=== PATIENT | female | born 1995 | race Caucasian/White ===

== ENCOUNTER 2017-10-26 09:49 | Emergency (ER) | payer MEDICAID ==
--- NOTE | 2017-10-26 10:11 | EDM.PDOC ---
ED HPI GENERAL MEDICAL PROBLEM - General Chief Complaint: Genitourinary Problem Stated Complaint: AND BLEEDING Time Seen by Provider: 10/26/17 10:07 Source of Information: Reports: Patient History Limitations: Reports: No Limitations - History of Present Illness INITIAL COMMENTS - FREE TEXT/NARRATIVE: 22-year-old female presents to the ED with diffuse lower abdominal cramping pain associated with bleeding per vagina. Patient believes she is as she has had 6 positive home tests over the last week. Last menstrual period was around the or 21 of September. Cycles are usually pretty regular. She's not been using any form of contraception. She has never been before. Currently she is experiencing intermittent lower abdominal cramping pain with associated bright red bleeding per vagina. States the cramping is similar to what she experiences in her normal menstrual cycle. Associated diffuse low back pain as well. Patient has never had any abdominal surgery. She states that she has had breast tenderness and certain foods make her nauseated but she has not thrown up yet from the . Onset: Gradual (Started spotting per vagina last night after supper initial spotting was dark brownish in color. Overnight she developed increased bone cramping pain and bright red flow particularly this morning.) Onset Date: 10/25/17 Onset Time: 20:00 Duration: Hour(s): Location: Reports: Abdomen (Diffuse lower abdominal suprapubic--abdominal cramping pain.) Quality: Reports: Sharp, Stabbing, Other Severity: Moderate (Cramping.) Improves with: Reports: None Worsens with: Reports: None Context: Reports: Other ( Similarly 6. Is within normal periods. suspected to be early . Last emesis. Was around the August. Tenderness. : Positive. She test in the last week.). Denies: Activity, Exercise, Lifting, Sick Contact, Trauma Associated Symptoms: Reports: Nausea/Vomiting. 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 Estimated to be around September 20 or . This would make her 5 weeks .) ED ROS GENERAL - Review of Systems Review Of Systems: See Below Constitutional: Denies: Fever, Chills, Malaise, Weakness, Fatigue, Decreased Appetite, Weight Loss HEENT: Reports: No Symptoms Respiratory: Reports: No Symptoms Cardiovascular: Reports: No Symptoms Endocrine: Reports: No Symptoms GI/Abdominal: Reports: No Symptoms : Reports: Other (Fairly heavy bleeding of bright red blood per vagina. States it seems to be heavier than what she eats. She was with her normal. His. Associated lower abdominal suprapubic cramping discomfort that radiates into her back. She states the cramps or pain are similar which experiences with her periods.) Musculoskeletal: Reports: No Symptoms Skin: Reports: No Symptoms Neurological: Reports: No Symptoms Psychiatric: Reports: No Symptoms Hematologic/Lymphatic: Reports: No Symptoms Immunologic: Reports: No Symptoms ED EXAM - Physical Exam Exam: See Below Exam Limited By: No Limitations General Appearance: Alert, WD/WN, Anxious (Mildly anxious.) Eye Exam: Bilateral Eye: Normal Inspection (Normal.) Respiratory/Chest: No Respiratory Distress, Lungs Clear, Normal Breath Sounds, No Accessory Muscle Use Cardiovascular: Normal Peripheral Pulses, Regular Rate, Rhythm, No Edema, No Gallop, No Murmur GI/Abdominal Exam: Normal Bowel Sounds, Soft, Non-Tender, No Organomegaly, No Abnormal Bruit, No Mass, Pelvis Stable. No: Guarding, Rigid, Rebound, Tender (Female) Exam: Vaginal Bleeding, Other (Bright red bleeding apparent per vagina. Uterus is retroverted and nearly normal in size.). No: Adnexal Mass (L) , Adnexal Mass (R), Cervical Dilatation, Cervical Discharge, Cervical Fluid, Tissue Present in Cervix/Vagina, Uterine Tenderness Heart Tones: Not Bonner Back Exam: Normal Inspection, Full Range of Motion Extremities: Normal Inspection, Normal Range of Motion, Non-Tender, No Pedal Edema, Normal Capillary Refill Neurological: Alert, Oriented, CN II-XII Intact, Normal Cognition, Normal Gait Psychiatric: Normal Affect, Normal Mood Skin Exam: Warm, Dry, Intact, Normal Color, No Rash Course - Vital Signs Last Recorded V/S: Last Vital Signs Temp 36.6 C 10/26/17 10:07 Pulse 100 10/26/17 10:07 Resp 16 10/26/17 10:07 BP 127/90 10/26/17 10:07 Pulse Ox 100 10/26/17 10:07 - Orders/Labs/Meds Orders: Active Orders 24 hr Category Date Time Status OB Transvaginal [US] Stat Exams 10/26/17 12:19 Taken PATIENT RETYPE [BBK] Stat Lab 10/26/17 10:56 Results TYPE AND SCREEN [BBK] Stat Lab 10/26/17 10:56 Results URINALYSIS W/MICROSCOPIC [UA W/MICROSCOPIC] [URIN] Stat Lab 10/26/17 10:48 Ordered Dextrose 5%-0.9% NaCl [Dextrose 5%-Normal Saline] 1,000 Med 10/26/17 10:15 Active ml IV ASDIRECTED Medication Orders Dextrose/Sodium Chloride (Dextrose 5%-Normal Saline) 1,000 mls @ 150 mls/hr IV ASDIRECTED AMEENA Last Admin: 10/26/17 10:46 Dose: 150 mls/hr Labs: Laboratory Tests 10/26/17 10/26/17 10/26/17 Range/Units 10:10 10:48 10:56 WBC 8.35 (3.98-10.04) K/mm3 RBC 5.07 (3.98-5.22) M/mm3 Hgb 15.1 (11.2-15.7) gm/L Hct 44.1 (34.1-44.9) % MCV 87.0 (79.4-94.8) fl MCH 29.8 (25.6-32.2) pg MCHC 34.2 (32.2-35.5) g/dl RDW Std Deviation 38.0 (36.4-46.3) fL Plt Count 332 (182-369) K/mm3 MPV 8.7 L (9.4-12.3) fl Neutrophils % (Manual) 69 H (40-60) % Band Neutrophils % 0 (0-10) % Lymphocytes % (Manual) 23 (20-40) % Atypical Lymphs % 0 % Monocytes % (Manual) 4 (2-10) % Eosinophils % (Manual) 4 (0.7-5.8) % Basophils % (Manual) 0 L (0.1-1.2) Platelet Estimate Adequate RBC Morph Comment Normal Sodium (136-145) mEq/L Potassium (3.5-5.1) mEq/L Chloride (98-107) mEq/L Carbon Dioxide (21-32) mEq/L Anion Gap (5-15) BUN (7-18) mg/dL Creatinine (0.55-1.02) mg/dL Est Cr Clr Drug Dosing mL/min Estimated GFR (MDRD) (>60) mL/min BUN/Creatinine Ratio (14-18) Glucose (74-106) mg/dL Calcium (8.5-10.1) mg/dL Total Bilirubin (0.2-1.0) mg/dL AST (15-37) U/L ALT (14-59) U/L Alkaline Phosphatase (46-116) U/L Total Protein (6.4-8.2) g/dl Albumin (3.4-5.0) g/dl Globulin gm/dL Albumin/Globulin Ratio (1-2) HCG, Qual (NEGATIVE) HCG, Quant 19.0 mIU/mL Urine Color Yellow (Yellow) Urine Appearance Clear (Clear) Urine pH 5.5 (5.0-8.0) Ur Specific [place] 1.025 (1.005-1.030) Urine Protein Negative (Negative) Urine Glucose (UA) Negative (Negative) Urine Ketones Negative (Negative) Urine Occult Blood 2+ H (Negative) Urine Nitrite Negative (Negative) Urine Bilirubin Negative (Negative) Urine Urobilinogen 0.2 (0.2-1.0) Ur Leukocyte Esterase Negative (Negative) Urine RBC 30-40 H (0-5) /hpf Urine WBC 0-5 (0-5) /hpf Ur Epithelial Cells 0-5 (0-5) /hpf Urine Bacteria Few (FEW) /hpf Urine Mucus Few (FEW) /hpf Blood Type Gel Antibody Screen 10/26/17 10/26/17 10/26/17 Range/Units 10:56 10:56 10:56 WBC (3.98-10.04) K/mm3 RBC (3.98-5.22) M/mm3 Hgb (11.2-15.7) gm/L Hct (34.1-44.9) % MCV (79.4-94.8) fl MCH (25.6-32.2) pg MCHC (32.2-35.5) g/dl RDW Std Deviation (36.4-46.3) fL Plt Count (182-369) K/mm3 MPV (9.4-12.3) fl Neutrophils % (Manual) (40-60) % Band Neutrophils % (0-10) % Lymphocytes % (Manual) (20-40) % Atypical Lymphs % % Monocytes % (Manual) (2-10) % Eosinophils % (Manual) (0.7-5.8) % Basophils % (Manual) (0.1-1.2) Platelet Estimate RBC Morph Comment Sodium 138 (136-145) mEq/L Potassium 3.3 L (3.5-5.1) mEq/L Chloride 104 (98-107) mEq/L Carbon Dioxide 25 (21-32) mEq/L Anion Gap 12.3 (5-15) BUN 15 (7-18) mg/dL Creatinine 0.8 (0.55-1.02) mg/dL Est Cr Clr Drug Dosing 79.90 mL/min Estimated GFR (MDRD) > 60 (>60) mL/min BUN/Creatinine Ratio 18.8 H (14-18) Glucose 85 (74-106) mg/dL Calcium 9.3 (8.5-10.1) mg/dL Total Bilirubin 0.5 (0.2-1.0) mg/dL AST 12 L (15-37) U/L ALT 13 L (14-59) U/L Alkaline Phosphatase 59 (46-116) U/L Total Protein 7.8 (6.4-8.2) g/dl Albumin 4.3 (3.4-5.0) g/dl Globulin 3.5 gm/dL Albumin/Globulin Ratio 1.2 (1-2) HCG, Qual Positive H (NEGATIVE) HCG, Quant mIU/mL Urine Color (Yellow) Urine Appearance (Clear) Urine pH (5.0-8.0) Ur Specific [place] (1.005-1.030) Urine Protein (Negative) Urine Glucose (UA) (Negative) Urine Ketones (Negative) Urine Occult Blood (Negative) Urine Nitrite (Negative) Urine Bilirubin (Negative) Urine Urobilinogen (0.2-1.0) Ur Leukocyte Esterase (Negative) Urine RBC (0-5) /hpf Urine WBC (0-5) /hpf Ur Epithelial Cells (0-5) /hpf Urine Bacteria (FEW) /hpf Urine Mucus (FEW) /hpf Blood Type A POSITIVE Gel Antibody Screen Negative Meds: Medications Generic Name Dose Route Start Last Admin Trade Name Freq PRN Reason Stop Dose Admin Dextrose/Sodium Chloride 1,000 mls @ 150 mls/hr 10/26/17 10:15 10/26/17 10:46 Dextrose 5%-Normal Saline IV 150 mls/hr ASDIRECTED AMEENA Administration Discontinued Medications Generic Name Dose Route Start Last Admin Trade Name Freq PRN Reason Stop Dose Admin Acetaminophen 325 mg 10/26/17 10:24 Tylenol PO 10/26/17 10:25 NOW ONE - Radiology Interpretation Free Text/Narrative:: 22-year-old female presents to the ED with suspect . 6 positive home test in the last week. Associated breast tenderness and some nausea without any vomiting us far. Last normal vessel. Was a estimated to be around September 20. Cycles usually pretty regular. She has been sexually active and not using any form of contraception. If she is this would be her first . No previous abdominal surgery. Benign abdominal examination. BI-RADS bleeding per vagina appreciated. Uterus is retroverted nearly normal in size. Cervix is closed. No adnexal masses appreciated. Plan will confirm with beta hCG blood qualitative and quantitative.. Will not yet order a pelvic ultrasound as it's not clear that she is actually and this is not a missed period. At present she states she doesn't need anything for nausea or vomiting. Routine labs including type and screen ordered. - Re-Assessments/Exams Free Text/Narrative Re-Assessment/Exam: 10/26/17 11:25 only labs available at this time with hematology. I still don't have a positive test to warrant transvaginal ultrasound. 10/26/17 11:59 Total white count is 8.35 with 69% neutrophils and no bands reported. Hemoglobin is 15.1 with hematocrit of 44.1. Platelet count is 300-32, 000.. Sodium is 138 with a potassium of 3.3. The remainder the liver function and renal function is normal. Glucose is 85. Calcium is 9.3. The urine shows 2+ occult blood with 30-40 RBCs per high-power field which correlates with her current vaginal bleeding. B-HCG is not yet available. 10/26/17: 12:15: HCG is positive. Beta hCG quantitative however is only 19 suggesting failure. It's unlikely to represent an early . However transvaginal ultrasound will be done to rule out any proximal conception in the fallopian tubes. I am not suspicious of this clinically. 10/26/17 12:42 blood type is a positive. Therefore she will not we need any Rhogam or WinRho. Departure - Departure Time of Disposition: 14:01 Disposition: Home, Self-Care 01 Condition: Fair Clinical Impression: Incomplete miscarriage Intravenous infiltration Qualifiers: Encounter type: initial encounter Qualified Code(s): T80.1XXA - Vascular complications following infusion, transfusion and therapeutic injection, initial encounter - Discharge Information Referrals: PCP,None [Primary Care Provider] - Forms: ED Department Discharge Additional Instructions: Evaluation in the emergency room today in regards to 6 positive tests at home this last week. Estimated last trimester. Was around September 20. Make you 5 weeks by dates. The would be very early. Spotting last night with heavier bleeding per vagina overnight and this morning. Bright red blood loss appreciated. Associated lower abdominal cramping pain. Expect she test proved to be positive but the amount of hormone in the bloodstream was very low at 19 indicating failure or less likely a very early which would only be 3 or 4 days. An ultrasound was therefore performed and it did not show any evidence of a intrauterine or tissue within the uterus. It appears that the has failed likely for underlying genetic reasons. Your blood type today is a positive. All your other blood tests were normal. Expect a heavier than normal. Over the next couple of days. Might also last another day or 2 longer than normal. A take Motrin 600 mg every 6 hours if needed for cramping abdominal pain and also for pain in her left arm where the IV fluid infiltrated. Swelling in your arm will improve over the next 24 hours as the fluid will be reabsorbed by your body. Daily follow-up in the women's clinic ideally about Saturday next week. Suggest he seeing if you can get an appointment with Yeimy Tafoya. You need a repeat hormonal checked to make sure that that has gone down to 0. Return to the ED if you develop any sudden severe lower abdominal pain. If he cannot get into see Yeimy Tafoya then follow-up with Dr. Siegel or Dr. Bruno. The clinic number is [phone] to arrange an appointment is call first thing Saturday morning to do this. We suggest not trying to get for 2 consecutive menstrual cycles after this one. Just taking vitamins once daily if you are planning future pregnancies. - My Orders Last 24 Hours: My Active Orders 10/26/17 10:15 Dextrose 5%-0.9% NaCl [Dextrose 5%-Normal Saline] 1,000 ml IV ASDIRECTED 10/26/17 10:48 URINALYSIS W/MICROSCOPIC [UA W/MICROSCOPIC] [URIN] Stat 10/26/17 10:56 PATIENT RETYPE [BBK] Stat TYPE AND SCREEN [BBK] Stat 10/26/17 12:19 OB Transvaginal [US] Stat - Assessment/Plan Last 24 Hours: My Active Orders 10/26/17 10:15 Dextrose 5%-0.9% NaCl [Dextrose 5%-Normal Saline] 1,000 ml IV ASDIRECTED 10/26/17 10:48 URINALYSIS W/MICROSCOPIC [UA W/MICROSCOPIC] [URIN] Stat 10/26/17 10:56 PATIENT RETYPE [BBK] Stat TYPE AND SCREEN [BBK] Stat 10/26/17 12:19 OB Transvaginal [US] Stat
[2017-10-26] MEDS ORDERED: Dextrose 5%-0.9% NaCl 1,000 ML IV SCH (10:15)
[2017-10-26] MEDS ORDERED: Acetaminophen 325 MG Tab PO ONE (10:24)
--- NOTE | 2017-10-27 14:26 | US ---
First trimester obstetrical ultrasound: Multiple real-time images were obtained transvaginally. Comparison: No previous study is available. Findings: No intrauterine gestational sac is seen. No myometrial abnormality is seen. Endometrial thickness measures about 1.3 cm. Small exophytic abnormality seen off the left ovary measuring 7 mm. Uncertain if this is due to slight complicated cyst with small ectopic not being excluded at this time. Minimal free fluid is seen which may be physiologic. Ovaries are otherwise unremarkable. Impression: 1. 7 mm exophytic abnormality off the left ovary. Findings may represent a small an incidental complicated cyst but difficult to exclude a very small ectopic at this time. 2. No intrauterine gestation is seen. 3. Small amount of free fluid which is likely physiologic. Note: Follow-up and if patient's clinical status is stable, recommend repeat pelvic ultrasound in 11-14 days. Diagnostic code #3 Agree with preliminary report issued by [facility], with additional finding and recommendations as noted above ([facility] preliminary report dictated on 10/26/17, 2:40 PM Central Time)
== END 2017-10-26 14:46 | disposition home or self-care (01) ==
LOC: JD.ED 09:49
DX: O03.4 Incomplete spontaneous abortion without complication (principal); T80.89XA Other complications following infusion, transfusion and therapeutic injection, initial encounter
CPT/HCPCS: 36415; 76817; 80053; 81001; 84702; 84703; 85025; 86850; 86900; 86901; 96360; 96361; 99284; J7042

== ENCOUNTER 2019-04-09 23:27 | Emergency (ER) | payer MEDICAID ==
--- NOTE | 2019-04-09 23:49 | EDM.PDOC ---
ED HPI GENERAL MEDICAL PROBLEM - General Chief Complaint: Upper Extremity Injury/Pain Stated Complaint: FELL ON STEPS INJURING LEFT SHOULDER/HEAD/R KNEE Time Seen by Provider: 04/09/19 23:43 Source of Information: Reports: Patient, Family (friend) History Limitations: Reports: No Limitations - History of Present Illness INITIAL COMMENTS - FREE TEXT/NARRATIVE: 23-year-old female attends the ED stating that she fell down a flight of stairs a proximal be 15 stairs outside and apartment building. Did on a concrete landing. Sure how she fell in terms of some resulting versus sliding down the stairs. She is complaining of pain in her left shoulder collarbone area left side of her neck upper back and head. She fell about an hour prior, to coming into the ED. She has mild contusion to her right anterior knee but is able to walk and eyes any pain to her chest wall low back hips forearms. Has some pain also in her left fifth and second finger left hand. No injuries to the right hand or wrist. Plaster muscle. Was approximately 3 and half weeks ago. She does not believe she could be . Was no loss of consciousness. Pain is worsening primarily left shoulder and left side of her neck.. Onset: Today Onset Date: 04/09/19 Onset Time: 22:45 Duration: Minutes: Location: Reports: Head, Neck (Left side of her neck.), Upper Extremity, Left ( Left hand injury to the left second and fifth fingers left shoulder over the distal clavicle and acromioclavicular joint.), Lower Extremity, Right (Abrasion to the right knee over the patella.) Quality: Reports: Ache, Other (Sharp stabbing spasm-like pain with movement of her head or neck.) Severity: Moderate Improves with: Reports: Rest Worsens with: Reports: Movement Context: Reports: Trauma ([place] she fell down a flight of 15 stairs outside her apartment building.). 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 [No Known Home Meds] 04/09/19 [History] Past Medical History - Past Health History Medical/Surgical History: Denies Medical/Surgical History HEENT History: Reports: Impaired Vision Social & Family History - Family History Family Medical History: Noncontributory - Living Situation & Occupation Living situation: Reports: Single Occupation: Unemployed Review of Systems - Review of Systems Review Of Systems: See Below Constitutional: Reports: No Symptoms Eyes: Reports: No Symptoms Ears: Reports: No Symptoms Nose: Reports: No Symptoms Mouth/Throat: Reports: No Symptoms Respiratory: Reports: No Symptoms Cardiovascular: Reports: No Symptoms GI/Abdominal: Reports: No Symptoms Genitourinary: Reports: No Symptoms Musculoskeletal: Reports: Neck Pain (Left shoulder pain since fall.), Shoulder Pain, Hand Pain (Left hand pain), Joint Pain (Right knee pain) Skin: Reports: No Symptoms Neurological: Reports: No Symptoms Psychiatric: Reports: No Symptoms ED EXAM, GENERAL - Physical Exam Exam: See Below Exam Limited By: No Limitations General Appearance: Alert, WD/WN, Mild Distress, Other (Suggest 36.8. Pulse is 99 ) Eye Exam: Bilateral Eye: Normal Inspection, PERRL Ears: Normal External Exam Nose: Normal Inspection Throat/Mouth: Normal Inspection, Normal Lips, Normal Teeth, Normal Oropharynx, Other (No dental or tongue injuries.) Head: Other (Only tender over the left superior occipital scalp. No definitive hematoma identified. No ). No: Facial Swelling, Facial Tenderness, Sinus Tenderness Neck: Normal Inspection, Limited Range of Motion, Tender Lateral (Very tender left lateral neck with muscle spasm from C2-C7.). No: Carotid Bruit, Lymphadenopathy (L), Lymphadenopathy (R), Tender Midline Respiratory/Chest: No Respiratory Distress, Lungs Clear, Normal Breath Sounds, No Accessory Muscle Use, Chest Non-Tender, Other Cardiovascular: Normal Peripheral Pulses, Regular Rate, Rhythm, No Edema, No Gallop, No Murmur (No pain on from compression of the upper ribs and the sternum.), No Rub Peripheral Pulses: 3+: Posterior Tibial (L), Posterior Tibial (R), Dorsalis Pedis (L), Dorsalis Pedis (R) GI/Abdominal: Normal Bowel Sounds, Soft, Non-Tender, No Organomegaly, No Abnormal Bruit, No Mass, Pelvis Stable Back Exam: Other (Patient is tender in thoracic 12 and 3 and 4 levels. The remainder of the thoracic spine and the lumbar spine appear uninjured. There is no abrasions or contusions to the entire back.) Extremities: Normal Inspection, Normal Range of Motion, Other ( has a minor erythematous area to to the right anterior knee she has pain in her left second and fifth fingers with no obvious deformities. There appeared to be bruised and contused. She has pain over the acromial clavicular joint on the left side and distal clavicle. She can abduct the arm however. ). No: Non- Tender, Pedal Edema Neurological: Alert, Oriented, CN II-XII Intact, Normal Cognition, Normal Gait, No Motor/Sensory Deficits Psychiatric: Tearful Skin Exam: Warm, Dry, Intact, Normal Color, No Rash Course - Vital Signs Last Recorded V/S: Last Vital Signs Temp 36.8 C 04/09/19 23:35 Pulse 99 04/09/19 23:35 Resp 16 04/09/19 23:35 BP 141/80 H 04/09/19 23:35 Pulse Ox 96 04/09/19 23:35 - Orders/Labs/Meds Orders: Active Orders 24 hr Category Date Time Status Cervical Spine wo Cont [CT] Stat Exams 04/09/19 23:44 Taken Hand Comp Min 3V Lt [CR] Stat Exams 04/09/19 23:50 Taken Head wo Cont [CT] Stat Exams 04/09/19 23:44 Taken Shoulder Comp Lt [CR] Stat Exams 04/09/19 23:46 Taken Thoracic Spine wo Cont [CT] Stat Exams 04/09/19 23:45 Taken - Radiology Interpretation Free Text/Narrative:: 23-year-old female presents the ED after reporting that she fell down a flight of 15 stairs. Some clear how she fell whether she somersaulted door slid down the stairs. Injury occurred about an hour before deciding to come to the ED due to increasing pain primarily in her left neck and shoulder. Loss of consciousness. She has a sore spot on the left occipital scalp. She has marked tenderness over throat the left cervical spine from C2-C7 with marked paraspinal muscle spasm. I never asked her to rotate her neck. She has pain across this superior aspect of the left trapezius muscle and distal clavicle. There is marked tenderness over the acromioclavicular joint on the left side. She is able to afford flex and abduct the arm with some degree of pain. She has contusion to the left second and fifth fingers of her left hand. Abrasion to the right anterior knee without evidence of fracture to the patella. Plan CT head. CT cervical spine and thoracic spine due to pain in the upper thoracic spine T1-T4 level. X-rays of the left shoulder and left hand to be done. - Re-Assessments/Exams Free Text/Narrative Re-Assessment/Exam: 04/10/19 00:29 x-ray of the left hand reveals no fractures of any of the digits or metacarpals. X-ray of the left shoulder shows normal alignment of the acromioclavicular joint without separation or fracture of the distal clavicle or the acromium process. Humerus is intact as well. Client glenoid fossa normal. CT of the head reveals no abdomen maladies in terms of intracranial bleeding or mass effect or skull fracture. CT cervical spine reveals loss of lordotic curvature. No fractures or alignment appreciated. Similarly CT of the thoracic spine shows normal alignment and no fractures. And has suffered multiple contusions but no fractures. Treatment will be conservative with Motrin 600 mg every 6 hours as needed. Ice pack to sore areas one half hour out of every 4 hours for the next 2 days. She reports she doesn't swallow pills but can drink the Motrin liquid used for children. Departure - Departure Time of Disposition: 00:30 Disposition: Home, Self-Care 01 Condition: Fair Clinical Impression: Contusion of left shoulder, initial encounter Fall down stairs Qualifiers: Encounter type: initial encounter Qualified Code(s): W10.8XXA - Fall (on) (from ) other stairs and steps, initial encounter Contusion of occipital region of scalp Qualifiers: Encounter type: initial encounter Qualified Code(s): S00.03XA - Contusion of scalp, initial encounter Sprain of cervical neck Qualifiers: Encounter type: initial encounter Qualified Code(s): S13.9XXA - Sprain of joints and ligaments of unspecified parts of neck, initial encounter Contusion of left hand including fingers Qualifiers: Encounter type: initial encounter Qualified Code(s): S60.222A - Contusion of left hand, initial encounter - Discharge Information *PRESCRIPTION DRUG MONITORING PROGRAM REVIEWED*: Not Applicable *COPY OF PRESCRIPTION DRUG MONITORING REPORT IN PATIENT ZAIN: Not Applicable Referrals: PCP,None [Primary Care Provider] - Forms: ED Department Discharge, ED Return to Work/School Form Additional Instructions: Evaluation the emergent tonight in regards to multiple injuries that occurred from falling down a flight of stairs. The history it sounds like you're probably somersaulted down the stairs. He suffered a contusion to the left occipital scalp without hematoma formation. CT of the head reveals no intracranial bleeding or mass effect or skull fracture. Definite strain to the cervical spine with marked paraspinal muscle spasm appreciated on left side of the neck on examination. CT of the cervical spine does not reveal any broken bones indicating that the muscles and surrounding ligaments have been stretched and neck is likely going to be much more stiff and sore over the next 24-48 hours and then slowly start to improve. Similarly appears that you have contused the upper 4 thoracic spine bones in your upper back but CT reveals no fractures. Left shoulder injury is primarily to the acromioclavicular joint where collarbone joins onto your shoulder blade. Suffered a grade 1 strain of this area and bruised bone. X-rays do not reveal any broken bones in the collarbone or the skin shoulder blade scapula or the upper arm bone. X-rays of the left hand reveal no fractures of the left fifth or second fingers. Treatment is therefore time to heal. Suggest ice pack to sore areas for one half hour out of every 4 hours for the next couple of days to reduce swelling and pain. Motrin 6 mg every 6 hours as needed to reduce pain and inflammation. Just off work for the next 2-3 days until inflammation and spasm of the neck settles down. - My Orders Last 24 Hours: My Active Orders 04/09/19 23:44 Cervical Spine wo Cont [CT] Stat Head wo Cont [CT] Stat 04/09/19 23:45 Thoracic Spine wo Cont [CT] Stat 04/09/19 23:46 Shoulder Comp Lt [CR] Stat 04/09/19 23:50 Hand Comp Min 3V Lt [CR] Stat - Assessment/Plan Last 24 Hours: My Active Orders 04/09/19 23:44 Cervical Spine wo Cont [CT] Stat Head wo Cont [CT] Stat 04/09/19 23:45 Thoracic Spine wo Cont [CT] Stat 04/09/19 23:46 Shoulder Comp Lt [CR] Stat 04/09/19 23:50 Hand Comp Min 3V Lt [CR] Stat
--- NOTE | 2019-04-10 08:16 | CT ---
CT thoracic spine Technique: Multiple axial sections through the thoracic spine were obtained. Reconstructed coronal and sagittal images were obtained. Comparison: No prior thoracic spine imaging. Findings: Vertebral bodies and posterior arches are intact. No fracture is seen. Vertebral height and disc spaces are preserved. No abnormal subluxation is seen. No bony central or bony neural foraminal stenosis is seen. No traumatic disc herniation is appreciated. Impression: 1. No abnormality is appreciated on CT study of the thoracic spine. Diagnostic code #1 I agree with preliminary report from [facility], finalized on 04/10/19, 1:29 AM Central Time
--- NOTE | 2019-04-10 08:16 | CT ---
Head CT Technique: Multiple axial sections through the brain were obtained. Intravenous contrast was not utilized. Comparison: No previous intracranial imaging is available. Findings: Ventricles along with basal cisterns and sulci over the convexities appear within normal limits for the patient's age. No abnormal parenchymal densities are seen. No evidence of intracranial hemorrhage. No midline shift or mass effect is seen. Bone window settings were reviewed which show no acute calvarial abnormality. Mastoid sinuses are clear. Visualized paranasal sinuses are also clear. Impression: 1. Nothing acute is appreciated on noncontrast head CT study. Diagnostic code #1 I agree with preliminary report from [facility], finalized on 04/10/19, 1:47 AM Central Time
--- NOTE | 2019-04-10 08:16 | CR ---
Left hand: Four views of the left hand were obtained. Comparison: No previous hand study. Joint spaces are preserved. No fracture, dislocation or other bony abnormality is appreciated. Impression: 1. No abnormality is appreciated on left and exam. Diagnostic code #1
--- NOTE | 2019-04-10 08:16 | CR ---
Left shoulder: Three views of the left shoulder were obtained. Comparison: No prior shoulder study. Acromioclavicular and glenohumeral joints appear within normal limits. No fracture or other bony abnormality is identified. Impression: 1. No abnormality is identified on left shoulder exam. Diagnostic code #1
--- NOTE | 2019-04-10 08:16 | CT ---
CT cervical spine Technique: Multiple axial sections were obtained from above C1 inferiorly to the mid T2 level. Reconstructed sagittal and coronal images were reviewed. Comparison: No prior cervical spine imaging is available. Findings: Vertebral body heights and disc spaces are preserved. No fracture is seen. No abnormal subluxation is seen on the reconstructed sagittal images. No bony central or bony neural foraminal stenosis is seen. Impression: 1. No abnormality is identified on CT study of the cervical spine. Diagnostic code #1 I agree with preliminary report from [facility], finalized on 04/10/19, 1:44 AM Central Time
== END 2019-04-10 00:50 | disposition home or self-care (01) ==
LOC: JD.ED 23:27
DX: S13.4XXA Sprain of ligaments of cervical spine, initial encounter (principal); S40.012A Contusion of left shoulder, initial encounter; S00.03XA Contusion of scalp, initial encounter; S60.022A Contusion of left index finger without damage to nail, initial encounter; S60.052A Contusion of left little finger without damage to nail, initial encounter; W10.8XXA Fall (on) (from) other stairs and steps, initial encounter
CPT/HCPCS: 70450; 70450-26; 72125; 72125-26; 72128; 72128-26; 73030-26-LT; 73030-LT; 73130-26-LT; 73130-LT; 99283; 99284-25